=== PATIENT | female | born 1975 | race Caucasian/White ===

== ENCOUNTER → 2017-05-01 16:13 | Outpatient (REF) | payer MEDICAID, SELFPAY ==
[2017-05-01 18:46] LABS: Anion Gap 12.2 mEq/L (5-15); Blood Urea Nitrogen 8 mg/dL (7-18); Carbon Dioxide 27 mmol/L (21.0-32.0); Chloride 103 mmol/L (98-107); Creatinine,Serum 0.81 mg/dL (0.55-1.02); Estimated Glomerular Filt Rate 78 ml/min (>60); GFR (African American) 95 ML/MIN (>60); Glucose 71 mg/dL (74-106); Potassium 4.2 mmoL/L (3.5-5.1); Sodium 138 mmol/L (136-145)
== END ==
LOC: LAB 16:13
PROVIDERS: Visit Provider Physician Assistant
DX: E87.6 Hypokalemia (principal)
CPT/HCPCS: 80048

== ENCOUNTER → 2017-08-12 13:17 | Outpatient (REF) | payer MEDICAID, SELFPAY ==
[2017-08-12 18:53] LABS: Amphetamine/Metha Screen,Urine Negative ng/mL (<1000); Barbiturates Screen,Urine Negative ng/mL (<200); Benzodiazepines Screen,Urine Negative ng/mL (200); Cannabinoid Screen,Urine Negative ng/mL (<50); Cocaine Screen,Urine Negative ng/g (<300); Methadone Screen,Urine Negative ng/mL (<300); Opiate Screen,Urine Negative ng/mL (<300); Phencyclidine Screen,Urine Negative ng/mL (<25)
== END ==
LOC: LAB 13:17
PROVIDERS: Visit Provider Nurse Practitioner Family
DX: Z79.899 Other long term (current) drug therapy (principal)
CPT/HCPCS: 80305

== ENCOUNTER 2017-11-07 14:17 | Observation (INO) ==
--- NOTE | 2017-11-07 14:24 | Emergency Department Note ---
ED Disposition Clinical Impression: Chest pain Disposition: Still a Patient Condition on Discharge: Good Referrals: Harjinder Li MD [Primary Care Provider] - - Critical Care Critical Care Time: No Attestation: On , the high probability of a clinically significant, sudden or life threatening deterioration of the following system(s) required my full and direct attention, intervention and personal management. The time I documented below is in addition to time spent performing reported procedures but includes the following listed in this critical care notation. Medical Decision Making - Medical Records MR Comment: 338 pt states pain went away with nitro. states sister with heart attack in 40s, and father has [place] hx. smoker. plan admit. call to [facility] - Rishi Inquiry Pt receiving controlled substance: No Vital Signs: 11/07/17 14:20 11/07/17 14:24 11/07/17 14:34 Temperature 98.7 F Temperature Source Oral Pulse Rate [Left Radial] 60 Pulse Rate [Right Radial] 63 60 Respiratory Rate 18 14 Blood Pressure [Right Arm] 138/85 136/85 115/73 Blood Pressure Mean [Right Arm] 102 102 87 Blood Pressure Source [Right Arm] Automatic Cuff Automatic Cuff Automatic Cuff Blood Pressure Position [Right Arm] Sitting Sitting Sitting 02 Sat by Pulse Oximetry 98 98 98 Oxygen Delivery Method Room Air Oxygen Flow Rate (LPM) 11/07/17 14:43 11/07/17 14:45 11/07/17 14:54 Temperature Temperature Source Pulse Rate [Left Radial] Pulse Rate [Right Radial] 72 72 66 Respiratory Rate 18 18 18 Blood Pressure [Right Arm] 114/65 126/64 118/63 Blood Pressure Mean [Right Arm] 81 84 81 Blood Pressure Source [Right Arm] Automatic Cuff Automatic Cuff Automatic Cuff Blood Pressure Position [Right Arm] Sitting Sitting Sitting 02 Sat by Pulse Oximetry 96 92 L 92 L Oxygen Delivery Method Room Air Room Air Nasal Cannula Oxygen Flow Rate (LPM) 11/07/17 14:55 11/07/17 15:26 Temperature Temperature Source Pulse Rate [Left Radial] Pulse Rate [Right Radial] 57 L Respiratory Rate Blood Pressure [Right Arm] 114/67 Blood Pressure Mean [Right Arm] 82 Blood Pressure Source [Right Arm] Automatic Cuff Blood Pressure Position [Right Arm] Sitting 02 Sat by Pulse Oximetry 97 Oxygen Delivery Method Nasal Cannula Nasal Cannula Oxygen Flow Rate (LPM) 3 3 - Lab Data Lab Results 11/07/17 14:25: WBC 16.3 H, RBC 4.37, Hgb 13.9, Hct 42.4, MCV 96.8, MCH 31.7 H, MCHC 32.7, RDW 13.0, Plt Count 295, MPV 7.5, Neut % (Auto) 63.5, Lymph % (Auto) 28.3, Falls % (Auto) 5.7, Eos % (Auto) 2.2, Baso % (Auto) 0.4, Neut # (Auto) 10.3 H, Lymph # (Auto) 4.6 H, [place] # (Auto) 0.9, Eos # (Auto) 0.4, Baso # (Auto) 0.1, Total Counted 100, Neutrophils % (Manual) 51, Lymphocytes % (Manual) 38, Atypical Lymphs % 5.0, Monocytes % (Manual) 1 L, Eosinophils % (Manual) 5 H, Platelet Estimate Normal, Poikilocytosis 2+, Stomatocytes 2+ 11/07/17 14:25: Sodium 139, Potassium 2.7 L*, Chloride 103, Carbon Dioxide 28, Anion Gap 10.7, BUN 14, Creatinine 1.13 H, Estimated Creat Clear 76, Estimated GFR 53 L, Est GFR ( Amer) 64, Glucose 105, Calcium 8.2 L, Troponin I < 0.02 11/07/17 14:25: Total Bilirubin 0.2, Direct Bilirubin 0.1, Indirect Bilirubin 0.1, AST 12 L, ALT 26, Alkaline Phosphatase 51, Total Protein 7.0, Albumin 3.6, Lipase 186 11/07/17 14:25: D-Dimer 124 11/07/17 15:15: Potassium 3.1 L 11/07/17 15:20: Urine HCG, Qual Negative Result diagrams: 11/07/17 14:25 11/07/17 15:15 Orders (Tests/Meds): ED MEDICATIONS Generic Name Dose Route Start Last Admin Trade Name Freq PRN Reason Stop Dose Admin Potassium Chloride/Water 100 mls @ 100 mls/hr 11/07/17 15:33 Potassium Chloride 10meq/100ml Ivpb IV 11/07/17 16:32 ONCE ONE Nitroglycerin 0.4 mg 11/07/17 14:25 11/07/17 14:45 Nitrostat 0.4mg Sl Tablet SL 12/07/17 14:24 0.4 mg Q5MINP PRN Administration Chest Pain Discontinued Medications Generic Name Dose Route Start Last Admin Trade Name Anna PRN Reason Stop Dose Admin Aspirin 324 mg 11/07/17 14:25 11/07/17 14:31 Aspirin 81mg Chewable Tablet PO 11/07/17 14:26 Not Given ONCE ONE Potassium Chloride/Water 100 mls @ 100 mls/hr 11/07/17 15:30 Potassium Chloride 10meq/100ml Ivpb IV 11/07/17 18:29 Q1H VIC Potassium Chloride 40 meq 11/07/17 15:22 Klor-Con 20meq Tablet PO 11/07/17 15:23 ONCE ONE ORDERS Category Date Time Status Chest XR -- portable [XR chest portable] Stat Exams 11/07/17 14:22 Taken UDS [Drug Screen,Urine] Stat Lab 11/07/17 15:20 Received Urinalysis and Microscopic Stat Lab 11/07/17 15:20 Ordered - Radiology Data #1 Image(s): Chest Image Reviewed: Yes I reviewed the patient's radiology image Preliminary Findings: Normal/NAD, No Infiltrates Seen - ECG Data Tracing #1 ER EKG read by myself shows bradycardic sinus rhythm rate of 57, no stemi, normal axis, no QT prolongation, nonspecific EKG General Adult HPI - General Chief complaint: Chest Pain Stated complaint: palpatations Time Seen by Provider: 11/07/17 14:23 - History of Present Illness HPI narrative: She states at noon she started with chest pressure she rates it moderate in severity no radiation associated with shortness of breath and nausea and vomiting she states it is pleuritic in nature. Denies any leg or calf pain no fevers or chills denies any headache currently denies abdominal pain currently she states she had a little bit of headache previously today. She has been having some cough - Related Data Home Medications Medication Instructions Recorded Confirmed ibuprofen 600 mg tablet 600 mg PO DAILY tab 08/12/17 11/07/17 topiramate XR 100 mg 100 mg PO BID cap 08/12/17 11/07/17 capsule,extended release 24 hr Cetirizine HCl [All Day Allergy] 10 mg PO DAILY 11/07/17 11/07/17 Gabapentin [Neurontin 600mg 600 mg PO TID 11/07/17 11/07/17 tablet] Levothyroxine Sodium [Synthroid 112 mcg PO DAILY 11/07/17 11/07/17 112mcg (0.112mg) tablet] Montelukast Sodium [Singulair] 10 mg PO QHS 11/07/17 11/07/17 Omeprazole [Omeprazole 40mg 20 mg PO DAILY 11/07/17 11/07/17 Capsule] Allergies Allergy/AdvReac Type Severity Reaction Status Date / Time clindamycin [CLINDAMYCIN] Allergy Unknown Verified 08/12/17 10:37 [facility] History I have reviewed the patient's past medical history: Yes Medical History: Reports:: Seizures Other Medical History: Reports: Other Comment: Epilepsy Other Surgeries: Yes: Appendectomy, , Other Amputation: No Fractures: Yes Comment: 1995- Primary . 1999- Repeat . 2003- Repeat C- Section. ? thyroid removal x2. ? Appy. ? Lap Cholecystectomy. ? Lt. broken elbow - Social History Smoking Status: Current every day smoker # Packs/Day (cigarettes): 12 Alcohol Intake: never Substance Use Type: denies use Family Hx:: Non-contributory ROS Obtained: Yes All systems reviewed & no additional complaints Physical Exam General Appearance: Nontoxic Head: Normocephalic, without obvious abnormality, atraumatic. Eyes: conjunctiva/corneas clear ENT: Mucous membranes moist. Neck: No jugular venous distention. Cardiac: regular rate and rhythm Lungs: Clear to auscultation bilaterally Abdomen: epiGastric tenderness, Nondistended, positive bowel sounds, no rebound : No CVA tenderness Extremities: no edema Musculoskeletal: No chest wall tenderness No Homans sign No calf tenderness No swelling in legs Skin: No rashes or lesions to exposed skin. Neurologic: Alert. No gross focal deficits Psychiatric: Normal affect - General General appearance: alert - Respiratory Respiratory exam: Present: normal lung sounds bilaterally - Cardiovascular Cardiovascular exam: Present: regular rate - Neurological Exam Neurological exam: Present: alert
[2017-11-07 14:39] LABS: Basophils # 0.1 K/mm3 (0-0.2); Basophils % 0.4 % (0.1-2.0); Eosinophils # 0.4 K/mm3 (0.0-0.4); Eosinophils % 2.2 % (0.1-12.0); Hematocrit 42.4 % (37.0-47.0); Hemoglobin 13.9 g/dL (12.2-16.2); Lymphocytes # 4.6 K/mm3 (0.7-4.5); Lymphocytes % 28.3 K/mm3 (10-50); Mean Corpuscular HGB Conc 32.7 g/dL (31.8-35.4); Mean Corpuscular Hemoglobin 31.7 pg (27.0-31.2); Mean Corpuscular Volume 96.8 fl (81-99); Mean Platelet Volume 7.5 fl (7.4-10.4); Monocytes # 0.9 K/mm3 (0.1-1.0); Monocytes % 5.7 % (1.7-9.3); Neutrophils # 10.3 K/mm3 (1.8-7.8); Neutrophils % 63.5 % (37.0-80.0); Platelet Count 295 K/mm3 (142-424); Red Blood Count 4.37 M/mm3 (4.20-5.40); White Blood Count 16.3 K/mm3 (4.8-10.8)
[2017-11-07 14:59] LABS: Anion Gap 10.7 mEq/L (5-15); Blood Urea Nitrogen 14 mg/dL (7-18); Calcium 8.2 mg/dL (8.5-10.1); Carbon Dioxide 28 mmol/L (21.0-32.0); Chloride 103 mmol/L (98-107); Glucose 105 mg/dL (74-106); Potassium 2.7 mmoL/L (3.5-5.1); Sodium 139 mmol/L (136-145)
[2017-11-07 15:04] LABS: Albumin Level 3.6 gm/dL (3.4-5.0); Bilirubin,Direct 0.1 mg/dL (0.0-0.2); Bilirubin,Indirect 0.1 mg/dL (0.0-0.9); Bilirubin,Total 0.2 mg/dL (0.2-1.0)
[2017-11-07 15:09] LABS: Eosinophils % 5 % (0-3); Lymphocytes % 38 % (10-50); Monocytes % 1 % (2-9); Neutrophils % 51 % (42-76); Total Cells Counted 100
[2017-11-07 15:13] LABS: Stomatocytes 2+
[2017-11-07 15:29] LABS: Microscopic, Urine URINE MICROSCOPIC (MICROSCOPIC)
[2017-11-07 15:32] LABS: Appearance,Urine CLOUDY (Clear); Bilirubin,Urine Negative (Negative); Blood, Urine Negative (Negative); Color,Urine YELLOW (Yellow); Glucose,Urine (UA) Negative (Negative); Ketones,Urine Negative (Negative); Leukocyte Esterase,Urine Negative (Negative); PH,Urine 6.5 (5.0-8.5); Protein,Urine Negative (Negative); Specific Gravity, Urine 1.025 (1.005-1.030); Urobilinogen,Urine 0.2 EU/dl (0.2)
[2017-11-07 15:41] LABS: Amphetamine/Metha Screen,Urine Negative ng/mL (<1000); Barbiturates Screen,Urine Negative ng/mL (<200); Benzodiazepines Screen,Urine Negative ng/mL (<200); Cannabinoid Screen,Urine Negative ng/mL (<50); Cocaine Screen,Urine Negative ng/mL (<300); Methadone Screen,Urine Negative ng/mL (<300); Opiate Screen,Urine Negative ng/mL (<300); Phencyclidine Screen,Urine Negative ng/mL (<25)
[2017-11-07 15:42] LABS: WBC,Urine Occasional #/hpf (0-3)
[2017-11-07 15:43] LABS: Bacteria,Urine 1+ /lpf
[2017-11-08 03:14] LABS: Basophils # 0.1 K/mm3 (0-0.2); Basophils % 0.5 % (0.1-2.0); Eosinophils # 0.4 K/mm3 (0.0-0.4); Eosinophils % 3.1 % (0.1-12.0); Hematocrit 35.2 % (37.0-47.0); Lymphocytes # 4.1 K/mm3 (0.7-4.5); Lymphocytes % 34.4 K/mm3 (10-50); Mean Corpuscular HGB Conc 34.9 g/dL (31.8-35.4); Mean Corpuscular Hemoglobin 34.1 pg (27.0-31.2); Mean Corpuscular Volume 97.7 fl (81-99); Mean Platelet Volume 7.7 fl (7.4-10.4); Monocytes # 0.6 K/mm3 (0.1-1.0); Monocytes % 5.3 % (1.7-9.3); Neutrophils # 6.8 K/mm3 (1.8-7.8); Neutrophils % 56.7 % (37.0-80.0); Platelet Count 233 K/mm3 (142-424); White Blood Count 11.9 K/mm3 (4.8-10.8)
[2017-11-08 03:20] LABS: Hemoglobin 12.3 g/dL (12.2-16.2)
[2017-11-08 03:42] LABS: Anion Gap 8.6 mEq/L (5-15); Blood Urea Nitrogen 9 mg/dL (7-18); Calcium 7.4 mg/dL (8.5-10.1); Carbon Dioxide 25 mmol/L (21.0-32.0); Chloride 109 mmol/L (98-107); Glucose 90 mg/dL (74-106); Potassium 3.6 mmoL/L (3.5-5.1); Sodium 139 mmol/L (136-145)
--- NOTE | 2017-11-08 10:27 | History & Physical Report ---
*Admission Date: 11/07/17 *Chief complaint: chest pain *History of present illness: this wf presented to ed with chest pain over the last day with no fever or hemoptysis and had been at [place] [facility] with bronchitis about 1 week ago and treated as op- e states at noon she started with chest pressure she rates it moderate in severity no radiation associated with shortness of breath and nausea and vomiting she states it is pleuritic in nature. Denies any leg or calf pain no fevers or chills denies any headache currently denies abdominal pain currently she states she had a little bit of headache previously today. She has been having some cough [facility] History I have reviewed the patient's past medical history: Yes Medical History: Reports:: Seizures Denies:: Cancer, Diabetes Mellitus Type 1, Diabetes Mellitus Type 2, MRSA Other Medical History: Reports: Other Other Surgeries: Yes: Appendectomy, Cholecystectomy, , Thyroidectomy, Other Amputation: No Fractures: Yes - *Social History Educational Level: Attended High School Smoking Status: Current every day smoker Tobacco Type: cigarettes # Packs/Day (cigarettes): 1 Alcohol Intake: never Substance Use Type: denies use Occupational Status: disabled Housing: apartment Household Members: children - Psychiatric History Expresses thoughts of harming self/others: None Suicide Plan Description: No Plan *Family Hx:: Non-contributory Review of Systems - Review of Systems Review of systems:: pertinent systems reviewed and negative unless documented below - Constitutional Denies weakness - Eyes Denies change in vision - ENT Denies dizziness, Denies sore throat - *Cardiovascular Reports chest pain, Reports shortness of breath - *Respiratory Reports cough, Denies coughing up blood - *Gastrointestinal Reports abdominal pain - *Genitourinary Denies abnormal vaginal bleeding - *Musculoskeletal Denies joint pain - Integumentary/Breasts Denies rash - *Neurologic Denies seizure-like activity - Psychiatric Reports anxiety Meds Home Medications Medication Instructions Recorded Confirmed Type ibuprofen 600 mg tablet 600 mg PO DAILY tab 08/12/17 11/07/17 History topiramate XR 100 mg 100 mg PO BID cap 08/12/17 11/07/17 History capsule,extended release 24 hr Cetirizine HCl [All Day Allergy] 10 mg PO DAILY 11/07/17 11/07/17 History Gabapentin [Neurontin 600mg 600 mg PO TID 11/07/17 11/07/17 History tablet] Levothyroxine Sodium [Synthroid 112 mcg PO DAILY 11/07/17 11/07/17 History 112mcg (0.112mg) tablet] Montelukast Sodium [Singulair] 10 mg PO QHS 11/07/17 11/07/17 History Omeprazole [Omeprazole 40mg 20 mg PO DAILY 11/07/17 11/07/17 History Capsule] Allergies Allergy/AdvReac Type Severity Reaction Status Date / Time clindamycin [CLINDAMYCIN] Allergy Unknown Verified 08/12/17 10:37 Exam Vital signs and Labs for Last 24 Hours: Temp Pulse Resp BP Pulse Ox 98.1 F 54 L 18 104/67 96 11/08/17 08:19 11/08/17 08:19 11/08/17 08:19 11/08/17 08:19 11/08/17 08:19 Laboratory Results - last 24 hr 11/07/17 14:25: WBC 16.3 H, RBC 4.37, Hgb 13.9, Hct 42.4, MCV 96.8, MCH 31.7 H, MCHC 32.7, RDW 13.0, Plt Count 295, MPV 7.5, Neut % (Auto) 63.5, Lymph % (Auto) 28.3, [place] % (Auto) 5.7, Eos % (Auto) 2.2, Baso % (Auto) 0.4, Neut # (Auto) 10.3 H, Lymph # (Auto) 4.6 H, Allen # (Auto) 0.9, Eos # (Auto) 0.4, Baso # (Auto) 0.1, Total Counted 100, Neutrophils % (Manual) 51, Lymphocytes % (Manual) 38, Atypical Lymphs % 5.0, Monocytes % (Manual) 1 L, Eosinophils % (Manual) 5 H, Platelet Estimate Normal, Poikilocytosis 2+, Stomatocytes 2+ 11/07/17 14:25: Sodium 139, Potassium 2.7 L*, Chloride 103, Carbon Dioxide 28, Anion Gap 10.7, BUN 14, Creatinine 1.13 H, Estimated Creat Clear 76, Estimated GFR 53 L, Est GFR ( Amer) 64, Glucose 105, Calcium 8.2 L, Troponin I < 0.02 11/07/17 14:25: Total Bilirubin 0.2, Direct Bilirubin 0.1, Indirect Bilirubin 0.1, AST 12 L, ALT 26, Alkaline Phosphatase 51, Total Protein 7.0, Albumin 3.6, Lipase 186 11/07/17 14:25: D-Dimer 124 11/07/17 15:15: Potassium 3.1 L 11/07/17 15:20: Urine Color Yellow, Urine Appearance Cloudy, Urine pH 6.5, Ur Specific [place] 1.025, Urine Protein Negative, Urine Glucose (UA) Negative, Urine Ketones Negative, Urine Blood Negative, Urine Nitrate Negative, Urine Bilirubin Negative, Urine Urobilinogen 0.2, Ur Leukocyte Esterase Negative, Urine RBC None, Urine WBC Occasional, Ur Squamous Epith Cells 3-5, Urine Bacteria 1+ 11/07/17 15:20: Urine HCG, Qual Negative 11/07/17 15:20: Urine Opiates Screen Negative, Urine Methadone Screen Negative, Ur Barbituates Screen Negative, Ur Phencyclidine Scrn Negative, Ur Amphetamines Screen Negative, U Benzodiazepines Scrn Negative, Urine Cocaine Screen Negative, U Marijuana (THC) Screen Negative 11/07/17 20:59: Troponin I < 0.02 11/08/17 03:05: Sodium 139, Potassium 3.6, Chloride 109 H, Carbon Dioxide 25, Anion Gap 8.6, BUN 9 D, Creatinine 0.83 D, Estimated Creat Clear 113, Estimated GFR 76, Est GFR ( Amer) 92 D, Glucose 90, Calcium 7.4 L, Troponin I < 0.02 11/08/17 03:05: WBC 11.9 H D, RBC 3.60 L, Hgb 12.3 D, Hct 35.2 L, MCV 97.7, MCH 34.1 H, MCHC 34.9, RDW 13.0, Plt Count 233, MPV 7.7, Neut % (Auto) 56.7, Lymph % (Auto) 34.4, Allen % (Auto) 5.3, Eos % (Auto) 3.1, Baso % (Auto) 0.5, Neut # (Auto) 6.8, Lymph # (Auto) 4.1, Allen # (Auto) 0.6, Eos # (Auto) 0.4, Baso # (Auto) 0.1 I & O for Last 24 hours: Intake & Output 11/05/17 11/06/17 11/07/17 11/08/17 11:59 11:59 11:59 11:59 Intake Total 1166 / 1166 Balance 1166 / 1166 Weight 177 lb 7 oz - Constitutional no acute distress - *Routine HEENT Exam Head: Present: normocephalic, atraumatic Eye: Present: EOMI, PERRL. Absent: conjunctival icterus ENT: Present: mucous membranes dry - *Routine Neck Exam Present: supple - *Routine Respiratory Exam Present: rhonchi - *Routine Cardiovascular Exam Present: RRR. Absent: murmur, rubs - *Routine Abdominal Exam Present: soft - *Routine Extremities Exam Present: full ROM. Absent: calf tenderness - *Routine Skin Exam Present: intact - *Routine Neurological Exam Present: alert, oriented X3, CN II-XII intact - Routine Psychiatric Exam Present: normal affect Assessment and Plan (1) Chest pain Current visit: Yes Status: Acute Category: Medical Code(s): R07.9 - Chest pain, unspecified (2) Tobacco use Current visit: Yes Status: Acute Category: Social Hx Code(s): Z72.0 - Tobacco use (3) Hypothyroidism Current visit: Yes Status: Acute Category: Medical Code(s): E03.9 - Hypothyroidism, unspecified (4) Hypokalemia Current visit: Yes Status: Acute Category: Medical Code(s): E87.6 - Hypokalemia (5) Seizure disorder Current visit: Yes Status: Acute Category: Medical Code(s): G40.909 - Epilepsy, unspecified, not intractable, without status epilepticus (6) Bronchitis Current visit: Yes Status: Acute Category: Medical Code(s): J40 - Bronchitis, not specified as acute or chronic
--- NOTE | 2017-11-08 10:42 | Pharmacy Consult Notes ---
[facility] Pharmacy VTE Monitoring - Patient Demographics Admission date: 11/08/17 Report Date: 11/08/17 Time: 10:41 Allergies/Adverse Reactions: Patient Allergies clindamycin [CLINDAMYCIN] Allergy (Unknown, Verified 08/12/17 10:37) Height: 1.68 m Weight: 80.484 kg Patient Problems: Current Active Problems Chest pain (Acute) Tobacco use (Acute) Hypothyroidism (Acute) Hypokalemia (Acute) Seizure disorder (Acute) Bronchitis (Acute) - VTE Risk Labs: VTE Related Lab Results Hgb 12.3 g/dL (12.2-16.2) D 11/08/17 03:05 Hct 35.2 % (37.0-47.0) L 11/08/17 03:05 Plt Count 233 K/mm3 (142-424) 11/08/17 03:05 BUN 9 mg/dL (7-18) D 11/08/17 03:05 Creatinine 0.83 mg/dL (0.55-1.02) D 11/08/17 03:05 Estimated Creat Clear 113 mL/min (0-300) 11/08/17 03:05 Was VTE Risk Assessment Performed: Yes VTE Score: 1 VTE Risk Level: Very Low Risk - Prophylaxis Types of VTE Prophylaxis: TEDS Knee High Location of Applied Device: Bilateral Lower Extremeties, Refused (JAZZ HOSE ORDERED)
[2017-11-08 11:33] LABS: Coronavirus 229E Not Detected (NotDetected); Coronavirus NL63 Not Detected (NotDetected); Coronavirus OC43 Not Detected (NotDetected); Coronovirus HKU1,PCR Not Detected (NotDetected)
[2017-11-09 06:37] LABS: Basophils % 0.1 % (0.1-2.0); Eosinophils # 0.4 K/mm3 (0.0-0.4); Eosinophils % 2.1 % (0.1-12.0); Hemoglobin 12.9 g/dL (12.2-16.2); Lymphocytes # 1.1 K/mm3 (0.7-4.5); Lymphocytes % 6.4 K/mm3 (10-50); Mean Corpuscular HGB Conc 31.5 g/dL (31.8-35.4); Mean Corpuscular Volume 98.4 fl (81-99); Mean Platelet Volume 8.7 fl (7.4-10.4); Monocytes # 0.2 K/mm3 (0.1-1.0); Monocytes % 1.3 % (1.7-9.3); Neutrophils # 14.9 K/mm3 (1.8-7.8); Neutrophils % 90.1 % (37.0-80.0); Platelet Count 269 K/mm3 (142-424); Red Blood Count 4.17 M/mm3 (4.20-5.40); Red Cell Distribution Width 13.1 % (11.5-17.5); White Blood Count 16.5 K/mm3 (4.8-10.8)
[2017-11-09 06:47] LABS: Lymphocytes % 6 % (10-50); Monocytes % 1 % (2-9); Neutrophils % 82 % (42-76); Total Cells Counted 100
[2017-11-09 06:48] LABS: Macrocytosis 1+
[2017-11-09 06:50] LABS: Anion Gap 16.1 mEq/L (5-15); Potassium 4.1 mmoL/L (3.5-5.1)
[2017-11-09 06:51] LABS: Calcium 8.4 mg/dL (8.5-10.1)
--- NOTE | 2017-11-09 10:57 | Discharge Summary ---
General - General Admission date:: 11/07/17 Discharge date: 11/09/17 HPI HPI: this wf presented to ed with chest pain over the last day with no fever or hemoptysis and had been at [facility] with bronchitis about 1 week ago and treated as op- e states at noon she started with chest pressure she rates it moderate in severity no radiation associated with shortness of breath and nausea and vomiting she states it is pleuritic in nature. Denies any leg or calf pain no fevers or chills denies any headache currently denies abdominal pain currently she states she had a little bit of headache previously today. She has been having some cough Hospital Course Hospital Course: chest x ray:IMPRESSION: Nothing definitely acute Most likely viewing minor chronic changes towards lung bases, right more than left.... Doubt interstitial infiltrate Patient today states she feels better she would like to be discharged home. Patient's potassium is back to 4.1, patient has been leaving the floor to go out to smoke numerous times. Will discharge home on Zithromax and prednisone and follow-up on Friday in the office with Sumi SANCHEZ. Upper respiratory panel positive for rhinovirus. Objective Vital signs: Temp Pulse Resp BP Pulse Ox 97.9 F 70 18 105/60 100 11/09/17 07:58 11/09/17 07:58 11/09/17 07:58 11/09/17 07:58 11/09/17 08:00 no acute distress - *Routine HEENT Exam Head: Present: normocephalic Eye: Present: EOMI ENT: Present: mucous membranes moist - *Routine Neck Exam Present: full ROM - *Routine Respiratory Exam Present: wheezes - *Routine Cardiovascular Exam Present: RRR - *Routine Abdominal Exam Present: soft, normoactive bowel sounds - *Routine Extremities Exam Present: full ROM - *Routine Skin Exam Present: intact - *Routine Neurological Exam Present: alert, oriented X3, CN II-XII intact - Routine Psychiatric Exam Present: normal affect, normal thought process Results Labs on day of discharge: Labs from last 24 hours 11/09/17 11/09/17 11/08/17 06:22 06:22 11:20 WBC 16.5 H D RBC 4.17 L Hgb 12.9 Hct 41.0 MCV 98.4 MCH 31.0 MCHC 31.5 L RDW 13.1 Plt Count 269 MPV 8.7 Neut % (Auto) 90.1 H Lymph % (Auto) 6.4 L [place] % (Auto) 1.3 L Eos % (Auto) 2.1 Baso % (Auto) 0.1 Neut # (Auto) 14.9 H Lymph # (Auto) 1.1 [place] # (Auto) 0.2 Eos # (Auto) 0.4 Baso # (Auto) 0.0 Total Counted 100 Neutrophils % (Manual) 82 H Band Neutrophils % 11.0 H Lymphocytes % (Manual) 6 L Monocytes % (Manual) 1 L Platelet Estimate Normal Macrocytosis 1+ Sodium 142 Potassium 4.1 Chloride 109 H Carbon Dioxide 21 Anion Gap 16.1 H BUN 10 Creatinine 0.99 Estimated Creat Clear 95 Estimated GFR 62 Est GFR ( Amer) 75 Glucose 165 H Calcium 8.4 L D Chlamy pneumoniae PCR Not detected Adenovirus (PCR) Not detected B.parapertussis DNA PCR Not detected Coronavirus OC43 (PCR) Not detected Coronavirus HKU1 (PCR) Not detected Coronavirus 229E (PCR) Not detected Coronavirus NL63 (PCR) Not detected Human Metapneumovir PCR Not detected Influenza A (H1) PCR Not detected Influ A (H1N1/09) PCR Not detected Influenza A (H3) PCR Not detected Influenza Type A (PCR) Not detected Influenza Type B (PCR) Not detected M. pneumoniae (PCR) Not detected Parainfluenza 1 (PCR) Not detected Parainfluenza 2 (PCR) Not detected Parainfluenza 3 (PCR) Not detected Parainfluenza 4 (PCR) Not detected RSV (PCR) Not detected Entero/Rhino (PCR) Detected A Preliminary micro results at discharge 11/08/17 12:05 Sputum Culture - Preliminary Sputum - Expectorated Sputum Gram Negative Rods - Additional Comments Discussed patient with Dr. Li, he will round later, all orders per Dr. Li DS: Diagnosis - Discharge Diagnosis (1) Chest pain Status: Acute (2) Tobacco use Status: Acute (3) Hypothyroidism Status: Acute (4) Hypokalemia Status: Acute (5) Seizure disorder Status: Acute (6) Bronchitis Status: Acute Discharge Plan - Patient Discharge Instructions ACTIVITY: Continue current activity DIET: continue same diet Patient Instructions: DI for Acute Bronchitis - Follow up Plan Follow up with: Sumi Marquis PA [Family Provider] - 11/11/17 Disposition: Home, Self-Long-Term Medications: Home Medications Medication Instructions Recorded Confirmed Type ibuprofen 600 mg tablet 600 mg PO DAILY tab 08/12/17 11/07/17 History topiramate XR 100 mg 100 mg PO BID cap 08/12/17 11/07/17 History capsule,extended release 24 hr Cetirizine HCl [All Day Allergy] 10 mg PO DAILY 11/07/17 11/07/17 History Gabapentin [Neurontin 600mg 600 mg PO TID 11/07/17 11/07/17 History tablet] Levothyroxine Sodium [Synthroid 112 mcg PO DAILY 11/07/17 11/07/17 History 112mcg (0.112mg) tablet] Montelukast Sodium [Singulair] 10 mg PO QHS 11/07/17 11/07/17 History Omeprazole [Omeprazole 40mg 20 mg PO DAILY 11/07/17 11/07/17 History Capsule] Prescriptions/Medication Reconciliation: New Azithromycin [Zithromax 250mg tab] 500 mg PO DAILY 5 Days #5 tab predniSONE [Prednisone 20mg Tab] 20 mg PO BID #10 tab Continue topiramate XR 100 mg capsule,extended release 24 hr 100 mg PO BID cap ibuprofen 600 mg tablet 600 mg PO DAILY tab Levothyroxine Sodium [Synthroid 112mcg (0.112mg) tablet] 112 mcg PO DAILY Gabapentin [Neurontin 600mg tablet] 600 mg PO TID Cetirizine HCl [All Day Allergy] 10 mg PO DAILY Omeprazole [Omeprazole 40mg Capsule] 20 mg PO DAILY Montelukast Sodium [Singulair] 10 mg PO QHS
== END 2017-11-09 12:55 | disposition home or self-care (01) ==
LOC: 2ND 14:17 → ER 14:17 → 2ND 18:05
PROVIDERS: ADMIT Emergency Medicine; ATTEND Emergency Medicine

== ENCOUNTER → 2018-04-07 17:34 | Outpatient (CLI) | payer MEDICAID, SELFPAY ==
[2018-04-07 18:28] LABS: Basophils # 0.1 K/mm3 (0-0.2); Basophils % 0.7 % (0.1-2.0); Eosinophils # 0.1 K/mm3 (0.0-0.4); Eosinophils % 0.9 % (0.1-12.0); Hematocrit 46.5 % (37.0-47.0); Hemoglobin 14.9 g/dL (12.2-16.2); Lymphocytes # 2.8 K/mm3 (0.7-4.5); Lymphocytes % 33.2 % (10-50); Mean Corpuscular Hemoglobin 31.3 pg (27.0-31.2); Mean Corpuscular Volume 97.9 fl (81-99); Mean Platelet Volume 9.2 fl (7.4-10.4); Monocytes # 0.4 K/mm3 (0.1-1.0); Monocytes % 4.6 % (1.7-9.3); Neutrophils % 60.6 % (37.0-80.0); Platelet Count 314 K/mm3 (142-424); Red Blood Count 4.75 M/mm3 (4.20-5.40); Red Cell Distribution Width 13.7 % (11.5-17.5); White Blood Count 8.3 K/mm3 (4.8-10.8)
[2018-04-07 19:34] LABS: Alanine Aminotransferase 19 U/L (12-78); Albumin Level 3.9 gm/dL (3.4-5.0); Anion Gap 19.1 mEq/L (5-15); Aspartate Amino Transferase 12 U/L (15-37); Bilirubin,Total 0.3 mg/dL (0.2-1.0); Blood Urea Nitrogen 9 mg/dL (7-18); Calcium 8.5 mg/dL (8.5-10.1); Carbon Dioxide 21 mmol/L (21.0-32.0); Chloride 106 mmol/L (98-107); Creatinine,Serum 0.96 mg/dL (0.55-1.02); Estimated Glomerular Filt Rate 64 ml/min (>60); GFR (African American) 77 ML/MIN (>60); Glucose 84 mg/dL (74-106); Potassium 4.1 mmoL/L (3.5-5.1); Sodium 142 mmol/L (136-145); Total Protein,Serum 7.3 gm/dL (6.4-8.2)
[2018-04-07 19:35] LABS: Albumin/Globulin Ratio 1.1 (1.1-1.8); Alkaline Phosphatase 47 U/L (46-116); Cholesterol 211 mg/dL (140-200); Globulin 3.4 gm/dl (1.3-3.2); HDL Cholesterol 42 mg/dL (29-89); LDL Cholesterol 156 mg/dL (0-130); T4 (Thyroxine) 4.7 ug/dl (4.7-13.3); Thyroid Stimulating Hormone 47.76 uIU/ml (0.358-3.740); Triglycerides 67 mg/dL (30-200); VLDL Cholesterol 13 mg/dL (0-40)
[2018-04-09 13:35] LABS: Folate 13.3 ng/mL (>3.0); Vitamin B12 276 pg/mL (232-1245); Vitamin D 25 Hydroxy 21.4 ng/mL (30.0-100.0)
== END ==
PROVIDERS: Visit Provider Physician Assistant
DX: E03.9 Hypothyroidism, unspecified (principal); G62.9 Polyneuropathy, unspecified
CPT/HCPCS: 80053; 80061; 82607; 82652; 82746; 84436; 84443; 85025

== ENCOUNTER → 2018-07-16 13:57 | Outpatient (CLI) | payer MEDICAID, SELFPAY ==
[2018-07-16 17:34] LABS: Amphetamine/Metha Screen,Urine Negative ng/mL (<1000); Barbiturates Screen,Urine Negative ng/mL (<200); Benzodiazepines Screen,Urine Negative ng/mL (<200); Cannabinoid Screen,Urine Negative ng/mL (<50); Cocaine Screen,Urine Negative ng/mL (<300); Methadone Screen,Urine Negative ng/mL (<300); Opiate Screen,Urine Negative ng/mL (<300); Phencyclidine Screen,Urine Negative ng/mL (<25)
== END ==
PROVIDERS: Visit Provider Nurse Practitioner Family
DX: R30.0 Dysuria (principal); Z79.899 Other long term (current) drug therapy
CPT/HCPCS: 80305; 87086; 87088; 87186

== ENCOUNTER → 2018-08-27 17:54 | Outpatient (CLI) | payer MEDICAID, SELFPAY ==
[2018-08-27 18:17] LABS: Basophils # 0.1 K/mm3 (0-0.2); Basophils % 0.3 % (0.1-2.0); Eosinophils # 0.1 K/mm3 (0.0-0.4); Eosinophils % 0.5 % (0.1-12.0); Hematocrit 41.9 % (37.0-47.0); Lymphocytes % 15.6 % (10-50); Mean Corpuscular HGB Conc 31.1 g/dL (31.8-35.4); Mean Corpuscular Hemoglobin 29.3 pg (27.0-31.2); Mean Corpuscular Volume 94.1 fl (81-99); Mean Platelet Volume 8.9 fl (7.4-10.4); Monocytes % 5.4 % (1.7-9.3); Neutrophils % 78.3 % (37.0-80.0); Platelet Count 287 K/mm3 (142-424); Red Blood Count 4.45 M/mm3 (4.20-5.40); Red Cell Distribution Width 12.8 % (11.5-17.5); White Blood Count 19.2 K/mm3 (4.8-10.8)
[2018-08-27 18:20] LABS: MANUAL DIFFERENTIAL MANUAL DIFFERENTIAL (MANUAL DIFF)
[2018-08-27 18:53] LABS: Lymphocytes % 9 % (10-50); Monocytes % 5 % (2-9); Neutrophils % 81 % (42-76); Total Cells Counted 100
[2018-08-27 18:54] LABS: Platelet Estimate Normal; RBC Morphology Normal
[2018-08-27 19:06] LABS: Alanine Aminotransferase 29 U/L (12-78); Alkaline Phosphatase 66 U/L (46-116); Anion Gap 14.1 mEq/L (5-15); Aspartate Amino Transferase 15 U/L (15-37); Bilirubin,Total 0.3 mg/dL (0.2-1.0); Blood Urea Nitrogen 7 mg/dL (7-18); Carbon Dioxide 27 mmol/L (21.0-32.0); Chloride 102 mmol/L (98-107); Chol/HDL Ratio 4.1 (1-3.5); Cholesterol 138 mg/dL (140-200); Creatinine,Serum 0.78 mg/dL (0.55-1.02); Estimated Glomerular Filt Rate 81 ml/min (>60); GFR (African American) 98 ML/MIN (>60); Glucose 103 mg/dL (74-106); HDL Cholesterol 34 mg/dL (29-89); LDL Cholesterol 85 mg/dL (0-130); Potassium 4.1 mmoL/L (3.5-5.1); Sodium 139 mmol/L (136-145); T4 (Thyroxine) 11.6 ug/dl (4.7-13.3); Thyroid Stimulating Hormone 0.78 uIU/ml (0.358-3.740); Total Protein,Serum 6.4 gm/dL (6.4-8.2); Triglycerides 94 mg/dL (30-200); VLDL Cholesterol 19 mg/dL (0-40)
[2018-08-27 19:11] LABS: Albumin Level 3.3 gm/dL (3.4-5.0); Albumin/Globulin Ratio 1.1 (1.1-1.8); Globulin 3.1 gm/dl (1.3-3.2)
== END ==
PROVIDERS: Visit Provider Physician Assistant
DX: E03.9 Hypothyroidism, unspecified (principal)
CPT/HCPCS: 80053; 80061; 82652; 84436; 84443; 85007; 85025

== ENCOUNTER → 2018-11-19 15:03 | Outpatient (CLI) | payer MEDICAID, SELFPAY ==
[2018-11-19 15:38] LABS: Amphetamine/Metha Screen,Urine Negative ng/mL (<1000); Barbiturates Screen,Urine Negative ng/mL (<200); Benzodiazepines Screen,Urine Negative ng/mL (<200); Cannabinoid Screen,Urine Negative ng/mL (<50); Cocaine Screen,Urine Negative ng/mL (<300); Methadone Screen,Urine Negative ng/mL (<300); Opiate Screen,Urine Negative ng/mL (<300); Phencyclidine Screen,Urine Negative ng/mL (<25)
== END ==
PROVIDERS: Visit Provider Nurse Practitioner Family
DX: G62.9 Polyneuropathy, unspecified (principal)
CPT/HCPCS: 80305

== ENCOUNTER → 2019-02-08 16:46 | Outpatient (CLI) | payer OTHER, SELFPAY ==
[2019-02-08 17:20] LABS: Basophils # 0.1 K/mm3 (0-0.2); Basophils % 0.6 % (0.1-2.0); Eosinophils # 0.1 K/mm3 (0.0-0.4); Eosinophils % 1.6 % (0.1-12.0); Hematocrit 45.8 % (37.0-47.0); Hemoglobin 14.5 g/dL (12.2-16.2); Lymphocytes % 35.3 % (10-50); Mean Corpuscular HGB Conc 31.6 g/dL (31.8-35.4); Mean Corpuscular Hemoglobin 31.1 pg (27.0-31.2); Mean Corpuscular Volume 98.4 fl (81-99); Mean Platelet Volume 9.9 fl (7.4-10.4); Monocytes # 0.5 K/mm3 (0.1-1.0); Neutrophils # 4.8 K/mm3 (1.8-7.8); Neutrophils % 56.6 % (37.0-80.0); Platelet Count 368 K/mm3 (142-424); Red Blood Count 4.65 M/mm3 (4.20-5.40); Red Cell Distribution Width 13.3 % (11.5-17.5); White Blood Count 8.5 K/mm3 (4.8-10.8)
[2019-02-08 18:21] LABS: HCG Qualitative, Serum Negative (Negative)
[2019-02-08 21:39] LABS: Alanine Aminotransferase 38 U/L (12-78); Albumin Level 3.5 gm/dL (3.4-5.0); Alkaline Phosphatase 66 U/L (46-116); Anion Gap 16.8 mEq/L (5-15); Aspartate Amino Transferase 19 U/L (15-37); Bilirubin,Total 0.2 mg/dL (0.2-1.0); Blood Urea Nitrogen 8 mg/dL (7-18); Calcium 9.1 mg/dL (8.5-10.1); Carbon Dioxide 26 mmol/L (21.0-32.0); Chloride 102 mmol/L (98-107); Chol/HDL Ratio 4.8 (1-3.5); Cholesterol 228 mg/dL (140-200); Creatinine,Serum 0.73 mg/dL (0.55-1.02); Estimated Glomerular Filt Rate 87 ml/min (>60); GFR (African American) 106 ML/MIN (>60); Globulin 3.4 gm/dl (1.3-3.2); Glucose 89 mg/dL (74-106); HDL Cholesterol 48 mg/dL (29-89); LDL Cholesterol 154 mg/dL (0-130); Potassium 4.8 mmoL/L (3.5-5.1); Sodium 140 mmol/L (136-145); T4 (Thyroxine) 11.8 ug/dl (4.7-13.3); Thyroid Stimulating Hormone 0.23 uIU/ml (0.358-3.740); Total Protein,Serum 6.9 gm/dL (6.4-8.2); Triglycerides 128 mg/dL (30-200); VLDL Cholesterol 26 mg/dL (0-40)
[2019-02-10 14:10] LABS: Vitamin D 25 Hydroxy 29.2 ng/mL (30.0-100.0)
== END ==
PROVIDERS: Visit Provider Physician Assistant
DX: R53.83 Other fatigue (principal); E55.9 Vitamin D deficiency, unspecified
CPT/HCPCS: 80053; 80061; 82652; 84436; 84443; 84703; 85025

== ENCOUNTER → 2019-07-13 13:05 | Outpatient (CLI) | payer OTHER, SELFPAY ==
[2019-07-13 14:02] LABS: Alanine Aminotransferase 30 U/L (12-78); Albumin Level 4.2 g/dl (3.5-5.0); Albumin/Globulin Ratio 1.4 (1.1-1.8); Alkaline Phosphatase 76 U/L (38-126); Aspartate Amino Transferase 30 U/L (14-36); Bilirubin,Total 0.2 mg/dl (0.2-1.3); Blood Urea Nitrogen 11 mg/dl (7-17); Calcium 9.2 mg/dl (8.4-10.2); Carbon Dioxide 24 mmol/L (22.0-30.0); Chloride 102 mmol/L (98-107); Chol/HDL Ratio 4.4 (1-3.5); Cholesterol 222 mg/dl (140-200); Estimated Glomerular Filt Rate 92 ml/min (>60); GFR (African American) 111 ML/MIN (>60); Glucose 122 mg/dl (74-100); HDL Cholesterol 51 mg/dl (40-60); Sodium 133 mmol/L (136-145); Total Protein,Serum 7.2 g/dl (6.3-8.2); Triglycerides 184 mg/dl (30-150); VLDL Cholesterol 37 mg/dL (0-40)
[2019-07-13 14:12] LABS: Direct LDL Cholesterol 170.54 mg/dL (100-129)
[2019-07-13 14:13] LABS: Basophils # 0.1 K/mm3 (0-0.2); Basophils % 1.1 % (0.1-2.0); Eosinophils # 0.1 K/mm3 (0.0-0.4); Eosinophils % 1.1 % (0.1-12.0); Hematocrit 45.7 % (37.0-47.0); Hemoglobin 14.5 g/dL (12.2-16.2); Lymphocytes # 2.3 K/mm3 (0.7-4.5); Lymphocytes % 18.9 % (10-50); Mean Corpuscular HGB Conc 31.8 g/dL (31.8-35.4); Mean Corpuscular Hemoglobin 30.4 pg (27.0-31.2); Mean Corpuscular Volume 95.6 fl (81-99); Mean Platelet Volume 9.5 fl (7.4-10.4); Monocytes # 0.7 K/mm3 (0.1-1.0); Monocytes % 5.6 % (1.7-9.3); Neutrophils # 8.9 K/mm3 (1.8-7.8); Neutrophils % 73.3 % (37.0-80.0); Platelet Count 396 K/mm3 (142-424); Red Blood Count 4.79 M/mm3 (4.20-5.40); Red Cell Distribution Width 13.9 % (11.5-17.5); White Blood Count 12.1 K/mm3 (4.8-10.8)
[2019-07-13 14:20] LABS: T4 (Thyroxine) 13.6 ug/dl (5.53-11.0)
[2019-07-13 14:33] LABS: Thyroid Stimulating Hormone 0.76 uIU/mL (0.465-4.68)
[2019-07-13 15:47] LABS: Hemoglobin A1C 5.4 % (4.0-6.0)
[2019-07-14 08:42] LABS: Vitamin B12 487 pg/mL (232-1245); Vitamin D 25 Hydroxy 28.4 ng/mL (30.0-100.0)
== END ==
PROVIDERS: Visit Provider Physician Assistant
DX: E03.9 Hypothyroidism, unspecified (principal); R53.83 Other fatigue; R73.09 Other abnormal glucose; E55.9 Vitamin D deficiency, unspecified
CPT/HCPCS: 80053; 80061; 82607; 82652; 83036; 84436; 84443; 85025

== ENCOUNTER → 2019-11-22 15:10 | Outpatient (CLI) | payer OTHER, SELFPAY ==
[2019-11-22 15:18] LABS: Basophils % 0.3 % (0.1-2.0); Eosinophils # 0.1 K/mm3 (0.0-0.4); Hematocrit 41.7 % (37.0-47.0); Lymphocytes # 3.1 K/mm3 (0.7-4.5); Lymphocytes % 30.8 % (10-50); Mean Corpuscular HGB Conc 33.6 g/dL (31.8-35.4); Mean Corpuscular Hemoglobin 31.3 pg (27.0-31.2); Mean Platelet Volume 10.2 fl (7.4-10.4); Monocytes # 0.5 K/mm3 (0.1-1.0); Monocytes % 4.8 % (1.7-9.3); Neutrophils # 6.3 K/mm3 (1.8-7.8); Neutrophils % 63.1 % (37.0-80.0); Platelet Count 378 K/mm3 (142-424); Red Blood Count 4.48 M/mm3 (4.20-5.40); Red Cell Distribution Width 14.4 % (11.5-17.5)
[2019-11-22 15:35] LABS: Alanine Aminotransferase 21 U/L (12-78); Albumin Level 3.9 g/dl (3.5-5.0); Albumin/Globulin Ratio 1.3 (1.1-1.8); Alkaline Phosphatase 80 U/L (38-126); Anion Gap 14.8 mEq/L (5-15); Aspartate Amino Transferase 28 U/L (14-36); Bilirubin,Total 0.4 mg/dl (0.2-1.3); Blood Urea Nitrogen 7 mg/dl (7-17); Calcium 9.6 mg/dl (8.4-10.2); Carbon Dioxide 24 mmol/L (22.0-30.0); Chloride 101 mmol/L (98-107); Chol/HDL Ratio 6.3 (1-3.5); Cholesterol 234 mg/dl (140-200); Estimated Glomerular Filt Rate 109 ml/min (>60); GFR (African American) 132 ML/MIN (>60); Globulin 3.1 g/dL (1.3-3.2); Glucose 102 mg/dl (74-100); HDL Cholesterol 37 mg/dl (40-60); Potassium 3.8 mmoL/L (3.5-5.1); Sodium 136 mmol/L (136-145); Triglycerides 209 mg/dl (30-150); VLDL Cholesterol 42 mg/dL (0-40)
[2019-11-22 15:47] LABS: Direct LDL Cholesterol 155.65 mg/dL (100-129)
[2019-11-22 15:52] LABS: 25-OH Vitamin D, Total 52.2 ng/mL (30-100)
[2019-11-22 15:53] LABS: T4 (Thyroxine) 16.5 ug/dl (5.53-11.0)
[2019-11-22 16:07] LABS: Thyroid Stimulating Hormone 0.03 uIU/mL (0.465-4.68)
[2019-11-22 16:26] LABS: Vitamin B12 462 pg/mL (239-931)
== END ==
PROVIDERS: Visit Provider Physician Assistant
DX: E03.9 Hypothyroidism, unspecified (principal); E55.9 Vitamin D deficiency, unspecified; G62.9 Polyneuropathy, unspecified; R53.83 Other fatigue
CPT/HCPCS: 80053; 80061; 82306; 82607; 84436; 84443; 85025

== ENCOUNTER → 2020-02-21 18:24 | Outpatient (CLI) | payer OTHER, SELFPAY | PROVIDERS: Visit Provider Physician Assistant | DX: N61.1 Abscess of the breast and nipple (principal) | CPT/HCPCS: 87070; 87077; 87186; 87205 ==

== ENCOUNTER 2020-04-11 10:58 | Outpatient (RCR) | payer OTHER, SELFPAY ==
--- NOTE | 2020-04-11 12:13 | HMH.PTOPEV ---
PT Outpatient Evaluation Rehab PT Outpatient Evaluation Start: 04/11/20 11:05 Freq: Status: Active Protocol: Document 04/11/20 11:45 [email or web address] (Rec: 04/11/20 12:12 MATTEO [id number]) Electronically Signed By Konrad Saldana, PT 04/11/20 11:45 Outpatient Therapy Subjective History Subjective History Patient is a 44 year old female presenting to outpatient PT with reports of chronic LBP with BLE radicular symptoms. Symptom onset approximatley 6 year ago of insidious onset. Special tests indicate L upslip of the innominant. No recent imaging to report. Radicular symptoms R>L/. Comorbidities include hx of HTH, HL, cholecystectomy, thyroidectomy . Chief Complaint Pain,Stiff,Paresthesia, Weakness Symptom Type Ache,Sharp,Numbness,Tingling Symptoms Relieved By Rest/Positioning,OTC Meds, Prescription Meds Symptoms Aggravated By Standing,Bending/Stooping, Physical Activity,Lifting Prior Functional Limitations None Current Functional Limitations Lifting,Housework,Sleeping, Standing,Squatting,Recreation Activity,Walking,Bending/ Stooping Symptom Description Constant but Variable Level of pain today (0-10) 6 Pain scale - at its best (0-10) 4 Pain scale - at its worst (0-10) 8 Lumbopelvic Eval Posture Thoracic Spine Posture Standing Position Increased Kyphosis Lumbar Spine Posture Standing Position Neutral Assistive device Assistive Devices None / NA Palapation tenderness bilateral lumbar spinal tenderness Yes: 3/4 L1-S1 paraspinal tenderness Yes: buttock tenderness Yes: Accessory Movement L3 bilateral L4 bilateral L5 bilateral S1 bilateral Range of Motion Lumbar Spine Active Flexion Range of 72 Motion (degrees) Lumbar Spine Active Extension Range of 11 Motion (degrees) Left Lumbar Spine Lateral Flexion Active 10 Range of Motion (degrees) Right Lumbar Spine Lateral Flexion 15 Active Range of Motion (degrees) Lumbar Spine ROM Limitations Soft Tissue Tightness,Bony Restriction Manual Muscle Test Right Knee Extension Strength
== END 2020-04-11 10:59 | disposition home or self-care (01) ==
LOC: PT 10:58
PROVIDERS: PCP Physician Assistant; Visit Provider Physician Assistant
DX: M54.9 Dorsalgia, unspecified (principal); M54.5 Low back pain
CPT/HCPCS: 97163

== ENCOUNTER → 2020-11-07 14:44 | Outpatient (CLI) | payer OTHER, SELFPAY ==
[2020-11-07 14:57] LABS: Basophils # 0.1 K/mm3 (0-0.2); Basophils % 0.6 % (0.1-2.0); Eosinophils # 0.2 K/mm3 (0.0-0.4); Eosinophils % 1.7 % (0.1-12.0); Hematocrit 39.6 % (37.0-47.0); Hemoglobin 12.7 g/dL (12.2-16.2); Lymphocytes # 2.9 K/mm3 (0.7-4.5); Mean Corpuscular HGB Conc 32.1 g/dL (31.8-35.4); Mean Corpuscular Hemoglobin 30.3 pg (27.0-31.2); Mean Corpuscular Volume 94.3 fl (81-99); Mean Platelet Volume 9.6 fl (7.4-10.4); Monocytes # 0.5 K/mm3 (0.1-1.0); Neutrophils # 5.4 K/mm3 (1.8-7.8); Neutrophils % 59.8 % (37.0-80.0); Platelet Count 448 K/mm3 (142-424)
[2020-11-07 14:58] LABS: Alanine Aminotransferase 19 U/L (12-78); Albumin Level 3.6 g/dl (3.5-5.0); Albumin/Globulin Ratio 1.2 (1.1-1.8); Alkaline Phosphatase 65 U/L (38-126); Anion Gap 14.1 mEq/L (5-15); Aspartate Amino Transferase 25 U/L (14-36); Bilirubin,Total 0.2 mg/dl (0.2-1.3); Blood Urea Nitrogen 9 mg/dl (7-17); Calcium 8.7 mg/dl (8.4-10.2); Carbon Dioxide 22 mmol/L (22.0-30.0); Chloride 108 mmol/L (98-107); Chol/HDL Ratio 5.8 (1-3.5); Cholesterol 213 mg/dl (140-200); Estimated Glomerular Filt Rate 109 ml/min (>60); GFR (African American) 131 ML/MIN (>60); Globulin 2.9 g/dL (1.3-3.2); Glucose 95 mg/dl (74-100); HDL Cholesterol 37 mg/dl (40-60); Potassium 4.1 mmoL/L (3.5-5.1); Sodium 140 mmol/L (136-145); Total Protein,Serum 6.5 g/dl (6.3-8.2); Triglycerides 212 mg/dl (30-150); VLDL Cholesterol 42 mg/dL (0-40)
[2020-11-07 15:09] LABS: Direct LDL Cholesterol 138.44 mg/dL (100-129)
[2020-11-07 15:17] LABS: 25-OH Vitamin D, Total 39.1 ng/mL (30-100)
[2020-11-07 15:29] LABS: Thyroid Stimulating Hormone 0.03 uIU/mL (0.465-4.68)
== END ==
PROVIDERS: Visit Provider Physician Assistant
DX: E03.9 Hypothyroidism, unspecified (principal); E87.6 Hypokalemia; E55.9 Vitamin D deficiency, unspecified; R53.83 Other fatigue
CPT/HCPCS: 80053; 80061; 82306; 84439; 84443; 85025

== ENCOUNTER → 2021-04-19 16:00 | Outpatient (CLI) | payer OTHER, SELFPAY ==
[2021-04-19 14:13] LABS: Basophils # 0.1 K/mm3 (0-0.2); Eosinophils # 0.2 K/mm3 (0.0-0.4); Hematocrit 39.5 % (37.0-47.0); Hemoglobin 12.7 g/dL (12.2-16.2); Lymphocytes # 2.7 K/mm3 (0.7-4.5); Lymphocytes % 25.2 % (10-50); Mean Corpuscular HGB Conc 32.2 g/dL (31.8-35.4); Mean Corpuscular Hemoglobin 30.7 pg (27.0-31.2); Mean Corpuscular Volume 95.3 fl (81-99); Mean Platelet Volume 9.2 fl (7.4-10.4); Monocytes # 0.7 K/mm3 (0.1-1.0); Monocytes % 6.5 % (1.7-9.3); Neutrophils # 6.9 K/mm3 (1.8-7.8); Neutrophils % 65.4 % (37.0-80.0); Platelet Count 428 K/mm3 (142-424); Red Blood Count 4.14 M/mm3 (4.20-5.40); White Blood Count 10.5 K/mm3 (4.8-10.8)
[2021-04-19 14:39] LABS: Chloride 108 mmol/L (98-107); Potassium 4.2 mmoL/L (3.5-5.1); Sodium 135 mmol/L (136-145)
[2021-04-19 14:41] LABS: Alanine Aminotransferase 21 U/L (12-78); Alkaline Phosphatase 66 U/L (38-126); Aspartate Amino Transferase 26 U/L (14-36); Bilirubin,Total 0.4 mg/dl (0.2-1.3); Blood Urea Nitrogen 12 mg/dl (7-17); Cholesterol 221 mg/dl (140-200); Estimated Glomerular Filt Rate 91 ml/min (>60); GFR (African American) 110 ML/MIN (>60); Iron 77 ug/dL (37-170); Triglycerides 248 mg/dl (30-150); VLDL Cholesterol 50 mg/dL (0-40)
[2021-04-19 14:42] LABS: Albumin Level 4.1 g/dl (3.5-5.0); Albumin/Globulin Ratio 1.6 (1.1-1.8); Calcium 8.2 mg/dl (8.4-10.2); Chol/HDL Ratio 7.1 (1-3.5); Globulin 2.6 g/dL (1.3-3.2); Glucose 74 mg/dl (74-100); HDL Cholesterol 31 mg/dl (40-60); Total Protein,Serum 6.7 g/dl (6.3-8.2)
[2021-04-19 14:52] LABS: Total Iron Binding Capacity 356 ug/dL (265-497)
[2021-04-19 14:54] LABS: Direct LDL Cholesterol 155.92 mg/dL (100-129)
[2021-04-19 15:01] LABS: 25-OH Vitamin D, Total 42.3 ng/mL (30-100)
[2021-04-19 15:17] LABS: Ferritin 31.7 ng/ml (6.24-137)
[2021-04-19 15:43] LABS: Anion Gap 8.2 mEq/L (5-15); Carbon Dioxide 23 mmol/L (22.0-30.0)
[2021-04-19 16:42] LABS: Vitamin B12 503 pg/mL (239-931)
== END ==
PROVIDERS: Visit Provider Physician Assistant
DX: E03.9 Hypothyroidism, unspecified (principal); M79.606 Pain in leg, unspecified; R53.83 Other fatigue; E66.9 Obesity, unspecified; Z68.37 Body mass index [BMI] 37.0-37.9, adult
CPT/HCPCS: 80053; 80061; 82306; 82607; 82728; 83540; 83550; 84443; 85025

== ENCOUNTER → 2022-01-01 10:50 | Outpatient (CLI) | payer OTHER, SELFPAY ==
[2022-01-01 14:45] LABS: Alanine Aminotransferase 24 U/L (12-78); Albumin Level 3.5 g/dl (3.5-5.0); Albumin/Globulin Ratio 1.3 (1.1-1.8); Alkaline Phosphatase 90 U/L (38-126); Anion Gap 13.3 mEq/L (5-15); Aspartate Amino Transferase 26 U/L (14-36); Bilirubin,Total 0.2 mg/dl (0.2-1.3); Blood Urea Nitrogen 10 mg/dl (7-17); Calcium 8.6 mg/dl (8.4-10.2); Carbon Dioxide 25 mmol/L (22.0-30.0); Chloride 107 mmol/L (98-107); Estimated Glomerular Filt Rate 78 ml/min (>60); GFR (African American) 94 ML/MIN (>60); Globulin 2.7 g/dL (1.3-3.2); Glucose 81 mg/dl (74-100); Potassium 4.3 mmoL/L (3.5-5.1); Sodium 141 mmol/L (136-145); Total Protein,Serum 6.2 g/dl (6.3-8.2)
[2022-01-01 15:15] LABS: Thyroid Stimulating Hormone 1.61 uIU/mL (0.465-4.68)
== END ==
PROVIDERS: PCP Family Medicine; Visit Provider Family Medicine
DX: E87.6 Hypokalemia (principal)
CPT/HCPCS: 80053; 84443

== ENCOUNTER → 2023-02-25 23:14 | Outpatient (CLI) | payer OTHER, SELFPAY ==
[2023-02-25 17:52] LABS: Adenovirus,PCR Not Detected (NotDetected); Coronavirus 19, PCR Not Detected (NotDetected); Coronavirus 229E Not Detected (NotDetected); Coronavirus NL63 Not Detected (NotDetected); Coronavirus OC43 Not Detected (NotDetected); Coronovirus HKU1,PCR Not Detected (NotDetected); Human Metapneumovirus Not Detected (NotDetected); Influenza A, PCR Not Detected (NotDetected); Influenza AH1, 2009 Not Detected (NotDetected); Influenza AH1, PCR Not Detected (NotDetected); Influenza AH3,PCR Not Detected (NotDetected); Influenza B, PCR Not Detected (NotDetected); Parainfluenza 1, PCR Not Detected (NotDetected); Parainfluenza 2, PCR Not Detected (NotDetected); Parainfluenza 3, PCR Not Detected (NotDetected); Parainfluenza 4, PCR Not Detected (NotDetected); Respiratory Syncytial Virus Not Detected (NotDetected); Rhinovirus/Enterovirus Not Detected (NotDetected)
== END ==
LOC: LAB.DROPOF 23:14
PROVIDERS: PCP Physician Assistant; Visit Provider Internal Medicine
DX: R06.02 Shortness of breath (principal)
CPT/HCPCS: 87632; 87635

== ENCOUNTER 2023-06-02 10:16 | Outpatient (CLI) | payer OTHER, SELFPAY ==
--- NOTE | 2023-06-02 10:24 | XR_ITS ---
FINAL REPORT CLINICAL HISTORY: back pain..no trauma FINDINGS: CERVICAL SPINE 2 views of the cervical spine were obtained. There is no prior exam for comparison. There is no acute fracture or malalignment. There is mild multilevel degenerative disc disease. Precervical soft tissues are unremarkable. IMPRESSION: Degenerative changes without acute abnormality. THORACIC SPINE 2 views of the thoracic spine were obtained. There is no prior exam for comparison. There is no acute fracture or acute malalignment. There is multilevel degenerative disc disease. No acute paraspinal abnormality. IMPRESSION: Degenerative changes without acute abnormality. LUMBOSACRAL SPINE 2 views of the lumbosacral spine were obtained. There is no prior for comparison. There is no acute fracture or acute malalignment. There is mild degenerative disc disease, most pronounced at L1-2. No acute paraspinal abnormality. IMPRESSION: Degenerative changes without acute abnormality. Reviewed, Interpreted and Dictated by Cecelia Lemon MD Transcribed by Vanita Riley Authenticated and [facility]
[2023-06-02 13:30] LABS: Basophils # 0.1 K/mm3 (0-0.2); Basophils % 0.8 % (0.1-2.0); Eosinophils # 0.3 K/mm3 (0.0-0.4); Eosinophils % 2.4 % (0.1-12.0); Hematocrit 40.9 % (37.0-47.0); Hemoglobin 13.3 g/dL (12.2-16.2); Lymphocytes % 25.1 % (10-50); Mean Corpuscular HGB Conc 32.4 g/dL (31.8-35.4); Mean Corpuscular Hemoglobin 30.5 pg (27.0-31.2); Mean Platelet Volume 9.8 fl (7.4-10.4); Monocytes # 0.6 K/mm3 (0.1-1.0); Monocytes % 5.1 % (1.7-9.3); Neutrophils # 8.1 K/mm3 (1.8-7.8); Neutrophils % 66.6 % (37.0-80.0); Platelet Count 420 K/mm3 (142-424); Red Blood Count 4.35 M/mm3 (4.20-5.40); Red Cell Distribution Width 14.8 % (11.5-17.5); White Blood Count 12.1 K/mm3 (4.8-10.8)
[2023-06-02 13:40] LABS: Alanine Aminotransferase 31 U/L (12-78); Albumin Level 3.9 g/dl (3.5-5.0); Albumin/Globulin Ratio 1.3 (1.1-1.8); Alkaline Phosphatase 108 U/L (38-126); Anion Gap 10.7 mEq/L (5-15); Aspartate Amino Transferase 27 U/L (14-36); Bilirubin,Total 0.4 mg/dl (0.2-1.3); Blood Urea Nitrogen 12 mg/dl (7-17); Calcium 8.6 mg/dl (8.4-10.2); Carbon Dioxide 22 mmol/L (22.0-30.0); Chloride 107 mmol/L (98-107); Cholesterol 191 mg/dl (140-200); Estimated Glomerular Filt Rate 90 ml/min (>60); GFR (African American) 109 ML/MIN (>60); Glucose 116 mg/dl (74-100); HDL Cholesterol 32 mg/dl (40-60); Potassium 3.7 mmoL/L (3.5-5.1); Sodium 136 mmol/L (136-145); Total Protein,Serum 6.9 g/dl (6.3-8.2); Triglycerides 134 mg/dl (30-150); VLDL Cholesterol 27 mg/dL (0-40)
[2023-06-02 13:51] LABS: Direct LDL Cholesterol 110.58 mg/dL (100-129)
[2023-06-02 14:01] LABS: 25-OH Vitamin D, Total 45.2 ng/mL (30-100)
[2023-06-02 14:10] LABS: Thyroid Stimulating Hormone 7.69 uIU/mL (0.465-4.68)
[2023-06-02 14:23] LABS: Hemoglobin A1C 6.2 % (4.0-6.0)
== END 2023-06-02 23:59 ==
LOC: RAD 10:17
PROVIDERS: PCP Physician Assistant; Visit Provider Family Medicine
DX: M54.50 Low back pain, unspecified (principal); M51.36 Other intervertebral disc degeneration, lumbar region; G62.9 Polyneuropathy, unspecified; F41.9 Anxiety disorder, unspecified; F32.A Depression, unspecified; E66.9 Obesity, unspecified; F17.210 Nicotine dependence, cigarettes, uncomplicated; Z68.41 Body mass index [BMI] 40.0-44.9, adult; Z79.899 Other long term (current) drug therapy
CPT/HCPCS: 72084; 80053; 80061; 82306; 83036; 84443; 85025

== ENCOUNTER 2023-12-22 11:06 | Outpatient (CLI) | payer OTHER, SELFPAY ==
[2023-12-22 20:01] LABS: Hemoglobin A1C 5.9 % (4.0-6.0)
== END 2023-12-22 23:59 | disposition home or self-care (01) ==
LOC: LAB.DROPOF 12-23 11:07
PROVIDERS: PCP Family Medicine; Visit Provider Family Medicine
DX: Z00.00 Encounter for general adult medical examination without abnormal findings (principal)
CPT/HCPCS: 83036; 84443

== ENCOUNTER 2024-03-22 11:45 | Outpatient (CLI) | payer OTHER, SELFPAY ==
[2024-03-22 19:45] LABS: Triiodothryronine (T3) Uptake 32 % (23.5-40.5)
[2024-03-22 19:46] LABS: Free Thyroxine Index 4.1 ug/dL (5.93-13.13); T4 (Thyroxine) 12.9 ug/dl (5.53-11.0)
[2024-03-22 19:59] LABS: Thyroid Stimulating Hormone 0.88 uIU/mL (0.465-4.68)
== END 2024-03-22 23:59 | disposition home or self-care (01) ==
LOC: LAB.DROPOF 03-23 14:01
PROVIDERS: PCP Family Medicine; Visit Provider Family Medicine
DX: E89.0 Postprocedural hypothyroidism (principal)
CPT/HCPCS: 84436; 84443; 84479